=== PATIENT | female | born 1980 | race Two or more races ===

== ENCOUNTER 2018-09-27 17:56 | Inpatient (IN) | payer OTHER ==
[~2018-09-27] VITALS: Ht 162.6 cm; Wt 82.6 kg
[2018-09-28] MEDS ORDERED: PRENATAL TABLE1 EACH PO (08:08)
== END 2018-10-17 19:27 | DRG 818 ==
LOC: OB/GYN 17:56 → LDR 17:56 → OB/GYN 09-29 17:55
PROVIDERS: ADMIT Obstetrics & Gynecology
PROC: 4A1HXCZ Monitoring of Products of Conception, Cardiac Rate, External Approach (ICD-10-PCS; 2018-09-27)
PROC: BY4DZZZ Ultrasonography of Second Trimester, Multiple Gestation (ICD-10-PCS; 2018-09-30)
PROC: 0UVC7ZZ Restriction of Cervix, Via Natural or Artificial Opening (ICD-10-PCS; principal; 2018-10-09 13:45)
DX: O34.32 Maternal care for cervical incompetence, second trimester (principal); O47.02 False labor before 37 completed weeks of gestation, second trimester; F43.22 Adjustment disorder with anxiety; Z34.82 Encounter for supervision of other normal pregnancy, second trimester

== ENCOUNTER → 2019-01-03 | Outpatient (CLI) | payer OTHER ==
[~2019-01-03] MED LIST: PRENATAL TABLE1 EACH PO
== END | disposition home or self-care (01) ==
LOC: NST 14:05
DX: Z34.83 Encounter for supervision of other normal pregnancy, third trimester (principal)

== ENCOUNTER → 2019-01-10 | Outpatient (CLI) | payer OTHER | END | disposition home or self-care (01) | LOC: NST 07:36 | DX: Z34.83 Encounter for supervision of other normal pregnancy, third trimester (principal) ==

== ENCOUNTER 2019-01-15 10:36 | Outpatient (CLI) | payer OTHER | END 2019-01-15 11:46 | disposition home or self-care (01) | LOC: NST 10:36 | DX: Z34.83 Encounter for supervision of other normal pregnancy, third trimester (principal) ==